=== PATIENT | male | born 1940 | race Caucasian/White ===

== ENCOUNTER 2020-08-28 19:47 | Emergency (ER) | payer MEDICARE, OTHER, SELFPAY ==
--- NOTE | ~2020-08-28 | XR_ITS ---
EXAMINATION: XR hand RT 2V DATE: 08/28/2020 20:58 INDICATION: Right hand and wrist injury post fall with severe laceration. TECHNIQUE: Posteroanterior and lateral views of the right hand were obtained. COMPARISON: None. FINDINGS: Bone alignment is normal. Tiny ossific density without evident donor site near the tip of the tuft of the right fifth distal phalanx likely sequela of old trauma. No acute fracture. 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 Multiple radiopaque foreign bodies along a deep soft tissue de fect at the radial aspect of the second digit extending into the first webspace consistent with given history of a deep laceration. There is prominent soft tissue swelling dorsal to the mid to distal me tacarpals. IMPRESSION: 1. Numerous radiopaque foreign bodies along a deep laceration at the radial aspect of the second digi t extending into the first webspace. 2. Polyarticular osteoarthritis. No acute osseous abnormality. Reviewed, dictated and finalized at location A. IMPRESSION: 1. Numerous radiopaque foreign bodies along a deep laceration at the radial asp ect of the second digit extending into the first webspace. 2. Polyarticular osteoarthritis. No acute osseous abnormality.
[2020-08-28 20:15] VITALS: BP 146/95; PULSE 63; RESP 20; TEMP 36.7; O2SAT 98
[2020-08-28] MEDS: TETANUS,DIPHTHERIA,AC PERTUSSIS ADULT 0.5 ML (ADACEL) IM (21:17)
--- NOTE | 2020-08-28 21:34 | PC.NURSE ---
[address] here to take pt pt loaded and taken to helicopter
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
[2020-08-28 22:31] VITALS: PULSE 64; RESP 20; O2SAT 100
== END 2020-08-28 22:32 | disposition home or self-care (01) ==
PROVIDERS: Emergency Provider Emergency Medicine; PCP Internal Medicine
DX: S61.411A Laceration without foreign body of right hand, initial encounter (principal); W22.8XXA Striking against or struck by other objects, initial encounter
CPT/HCPCS: 12042; 73120; 90471; 90715; 99282; 99283

== ENCOUNTER 2022-07-15 00:40 | Day surgery (SDC) | payer MEDICARE, OTHER, SELFPAY ==
[2022-07-12 09:18] VITALS: BMI 27.4
--- NOTE | 2022-07-12 09:34 | PC.NURSE ---
Report to the Outpatient Waiting Room, entrance under the green pavilion located off [facility], at time __1000___ on date __07/15/22 . OR Time: ___1100 . - You and your visitor will be asked to self-screen and do not enter if you have any COVID symptoms. - Only one visitor and NO children visitors are allowed at this time. - The patient visitor is requested to leave or wait in car when not with patient due to restrictions. - A mask is required within the hospital. -May have light breakfast am of surgery Take the following medications with a SIP of water the morning of surgery: EYE DROPS Medications to discontinue per physician Date to take last dose Please no make-up, nail turkish, hairspray, perfume, deodorant, or body powder the day of surgery. No jewelry (including any body piercings) or valuables the day of surgery, leave them at home. Please take a shower or bath the night before, or the morning of, surgery with an antibacterial soap. Wear comfortable, loose fitting clothing. Children are encouraged to wear pajamas. - Jewelry must be removed prior to entering the operating room. Rings and piercings that are not removed may be cut off. - The hospital will not accept responsibility for valuables. - Please leave all valuables, including medications, at home the day of surgery. If you are going home after surgery, a licensed minibus driver must drive you home. - NO public transportation without another adult. - We recommend that an adult stay with you for 24 hours following discharge. - We also recommend that you do not drive, make important decision, drink alcoholic beverages, or take any drugs that were not prescribed by your health care provider for at least 24 hours after your discharge time. For Pediatric surgeries, we recommend two adults accompany the child home (only one inside the building at this time). Follow any additional instructions given to you from your surgeon. If you or anyone in your household have experienced Covid symptoms in the past week, please notify your surgeon or the nurse liaison at the phone number below for possible testing. Telephone instructions given to ___PT and asked if any additional questions and then verbalized understanding. Patient advised to call surgeon office or pre surgery nurse liaison [phone] if any additional questions.
[2022-07-15] VITALS (9 sets, daily range): BP systolic 154–206; BP diastolic 55–96; PULSE 47–56; RESP 16–18; TEMP 36.1; O2SAT 97–100
--- NOTE | 2022-07-15 07:08 | WPDHPUPDATE1 ---
History and Physical Update Update Date/Time: 07/15/22 07:08 History and Physical has been reviewed, including an updated exam of the patient. There are NO changes in the patient's condition. Risks, benefits, and alternatives have been discussed and questions answered. Patient agrees to proceed with procedure.
--- NOTE | 2022-07-15 11:00 | SUR.OPER ---
Frozen section specimen sent with ARSALAN Tyler and received in pathology by Nusrat
[2022-07-15] MEDS: BACITRACIN OINTMENT 15 GM TUBE 1 APPLIC TOPICAL (11:02)
[2022-07-15] MEDS: LIDO 1%/EPINEPHRINE 1:100,000 50 ML VIAL INFILTRATE (11:02)
--- NOTE | 2022-07-15 11:53 | W.PM.PROC2 ---
Procedure Note - Detailed Date of Procedure 07/15/22 Pre-op Diagnosis Basal Cell Cx Rt Anterior Scalp Post-op Diagnosis Same Procedure Performed 2.5 cm excision of basal cell carcinoma with perineural involvement right anterior scalp with complex repair 5 cm Surgeon Niko Duque MD Anesthesia Local Description of Procedure The site on the patient's head, the recent surgical scar, was marked in the holding area. He was taken to the operating room and placed supine on the operating table The entire head and face were prepped and draped in usual fashion. A time-out was held and confirmed. The site was exposed through the Betadine and the marking placed for a wide excision around this. This excision is just over a cm on all aspects. This area was widely infiltrated with 1% lidocaine with epinephrine. The incision was made and carried down to periosteum. Periosteum was left intact as the more superficial tissue was removed. Anterior tip was marked with a suture for 12:00 o'clock. Specimen sent to pathology for frozen section. The pathologist revealed that no residual tumor was identified. I asked specifically about perineural involvement and he reported there was none. He thought he would be able to identify it were present. The wound margins were undermined at least 3 cm in all directions. The patient's scalp was fairly lax. We were able to collapse the wound margins and closed with intradermal 2-0 Vicryl. The skin was then closed with a running 4-0 nylon. Estimated blood loss was minimal. A small absorb give bandage was applied. No prescriptions were sent. Estimated Blood Loss 2 Drains No Packing No Pathology Yes Complications No immediate complications Condition Stable Disposition Same day
== END 2022-07-15 12:05 | disposition home or self-care (01) ==
PROVIDERS: PCP Internal Medicine; Visit Provider Plastic Surgery
PROC: (CPT 13121; principal; 2022-07-15 11:00)
DX: C44.41 Basal cell carcinoma of skin of scalp and neck (principal)
CPT/HCPCS: 13121; 11623; 88305; 88331; A9270